=== PATIENT | female | born 1990 | race Caucasian/White ===

== ENCOUNTER 2021-02-28 19:56 | Emergency (ER) | payer OTHER ==
[~2021-02-28] VITALS: Ht 172.7 cm; Wt 68.2 kg
[2021-02-28] MEDS ORDERED: RISP0.5T39 PO (20:26)
[2021-02-28] MEDS ORDERED: SERT-158 PO (20:26)
[2021-02-28] MEDS ORDERED: ChlordiazePOXIDE HCL 25 MG CAPSULE PO ONE (21:15)
[2021-02-28 22:42] VITALS: BP 115/69
== END 2021-02-28 23:12 | disposition home or self-care (01) ==
LOC: EMS 20:00
DX: F10.239 Alcohol dependence with withdrawal, unspecified (principal); F32.9 Major depressive disorder, single episode, unspecified; F17.210 Nicotine dependence, cigarettes, uncomplicated
CPT/HCPCS: 99283